=== PATIENT | female | born 1970 ===

== ENCOUNTER 2022-10-15 13:05 | Emergency (ER) | payer BC ==
[2022-10-15 13:25] VITALS: TEMP 98.4
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
[2022-10-15] MEDS ORDERED: LORazepam 1 MG TAB PO STA ×2 (16:31→21:53)
[2022-10-15 16:50] VITALS: RESP 18
[2022-10-15 17:43] LABS: Amphetamine Screen,Urine Not Detected (NotDetected); Barbiturate Screen,Urine Not Detected (NotDetected); Benzodiazepines Screen,Urine Detected (NotDetected); Cocaine Screen,Urine Not Detected (NotDetected); Methadone Screen, Urine Not Detected (NotDetected); Opiate Screen,Urine Not Detected (NotDetected); Oxycodone Screen, Urine Not Detected (NotDetected); Phencyclidine Screen,Urine Not Detected (NotDetected); Tricyclic Antidepressant,Urine Not Detected (NotDetected); Urn Cannabinoid Scrn Detected (NotDetected)
[2022-10-15 22:13] VITALS: BP 133/86; PULSE 59
== END 2022-10-15 22:13 | disposition home or self-care (01) ==
LOC: EC 13:05
DX: F41.9 Anxiety disorder, unspecified (principal); Z88.5 Allergy status to narcotic agent
CPT/HCPCS: 80306; 82075; 93005; 99285

== ENCOUNTER → 2023-06-02 | Outpatient (CLI) | payer BC ==
[2023-06-02 12:11] VITALS: BP 142/94; PULSE 101; RESP 15; TEMP 97.6
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
== END ==
LOC: PNWHC3 10:36
PROVIDERS: ATTEND Specialist
DX: M50.322 Other cervical disc degeneration at C5-C6 level (principal); R07.2 Precordial pain; Z88.5 Allergy status to narcotic agent
CPT/HCPCS: 99211